=== PATIENT | female | born 1925 | race Asian ===

== ENCOUNTER → 2017-01-17 | Outpatient (CLI) | payer MEDICARE, OTHER ==
[~2017-01-17] MED LIST: AMLO-511 PO; ASPI-556 PO; DONE5TAB PO; ESCI10TA PO; GLIM2TAB PO; METF500T4 PO; METR250 PO; MULT-1259 PO; OLME20TA14 PO; QUET25TA PO; ROSU10 PO
== END | disposition home or self-care (01) ==
LOC: RADMN 16:54
PROVIDERS: ATTEND Internal Medicine
DX: I70.0 Atherosclerosis of aorta (principal); I51.7 Cardiomegaly; R91.8 Other nonspecific abnormal finding of lung field; J90 Pleural effusion, not elsewhere classified
CPT/HCPCS: 71020

== ENCOUNTER → 2017-01-28 | Outpatient (CLI) | payer MEDICARE, OTHER ==
[2017-01-28 13:35] LABS: CALCIUM, TOTAL 8.8 mg/dL (8.8-10.5); CREATININE 2.03 mg/dL (0.60-1.30); POTASSIUM 3.1 mmol/L (3.5-5.1)
== END | disposition home or self-care (01) ==
LOC: LABPV 11:21
PROVIDERS: ATTEND Internal Medicine Cardiovascular Disease
DX: I11.0 Hypertensive heart disease with heart failure (principal); I50.9 Heart failure, unspecified; E11.8 Type 2 diabetes mellitus with unspecified complications

== ENCOUNTER → 2017-03-01 | Outpatient (CLI) | payer MEDICARE, OTHER ==
[2017-03-01 12:34] LABS: CALCIUM, TOTAL 8.5 mg/dL (8.8-10.5); CREATININE 1.66 mg/dL (0.60-1.30); POTASSIUM 4.3 mmol/L (3.5-5.1)
== END | disposition home or self-care (01) ==
LOC: LABPV 10:52
PROVIDERS: ATTEND Internal Medicine Cardiovascular Disease
DX: I11.0 Hypertensive heart disease with heart failure (principal); I50.9 Heart failure, unspecified; E11.8 Type 2 diabetes mellitus with unspecified complications